=== PATIENT | female | born 1990 | race Caucasian/White ===

== ENCOUNTER 2018-03-18 13:38 | Emergency (ER) | payer MEDICAID ==
--- NOTE | 2018-03-18 14:25 | Emergency Department Record ---
History of Present Illness - General Chief complaint: Eye Problem Stated complaint: headache Time Seen by Provider: 03/18/18 14:19 Source: Patient Mode of Arrival: Ambulatory Limitations: No limitations - History of Present Illness Initial comments: Pt to ED after episode of visual changes this AM followed by HUNTER and vomiting. Now better. Hx of similar 5 times in the past. No other complaints. Pt had left visual field "weird lights and lines" then developed and HUNTER on the left side. Shortly after vomited. No weakness. Onset/Timin -: Hour(s) Onset Description: Sudden Location: Left eye Place: Home Eye Symptoms: Decreased vision Associated Symptoms: None Treatments Prior to Arrival: None - Related Data Visual acuity (L) = 20/: 20 Visual acuity (R) = 20/: 20 With correction: No Home Medications Medication Instructions Recorded Confirmed Last Taken No Home Med [NO HOME MEDS] 03/18/18 03/18/18 Unknown Allergies Allergy/AdvReac Type Severity Reaction Status Date / Time No Known Drug Allergies Allergy Verified 03/18/18 13:59 Travel Screening - Travel/Exposure Within Last 30 Days Have you traveled within the last 30 days?: No Review of Systems Constitutional: Denies: Chills, Fever, Weakness Eyes: Reports: Photophobia, Vision change ENT: Denies: Congestion Respiratory: Denies: Cough, Dyspnea Cardiovascular: Denies: Arrhythmia, Chest pain Endocrine: Denies: Fatigue Gastrointestinal: Reports: Vomiting. Denies: Abdominal pain Genitourinary: Denies: Abnormal menses Musculoskeletal: Denies: Arthralgia Neurological: Reports: Headache. Denies: Numbness, Seizure, Tingling, Tremors, Weakness Psychiatric: Denies: Anxiety Hematological/Lymphatic: Denies: Anemia Past Medical History - SOCIAL HISTORY Smoking Status: Current every day smoker Alcohol Use: None Drug Use: None - RESPIRATORY Hx Respiratory Disorders: No - CARDIOVASCULAR Hx Cardio Disorders: No - NEURO Hx Neuro Disorders: No - GI Hx GI Disorders: No - Hx Genitourinary Disorders: No - ENDOCRINE Hx Endocrine Disorders: No - MUSCULOSKELETAL Hx Musculoskeletal Disorders: No - PSYCH Hx Psych Problems: No - HEMATOLOGY/ONCOLOGY Hx Hematology/Oncology Disorders: No Family Medical History Any Significant Family History?: No Physical Exam - General General Appearance: Alert, Oriented x3, Cooperative, No acute distress - Eye Eye exam: Normal appearance, PERRL, EOMI. negative: Nystagmus With correction: No - ENT ENT exam: Normal exam, Mucous membranes moist, Normal external ear exam, Normal orophraynx, TM's normal bilaterally - Neck Neck exam: Normal inspection. negative: Lymphadenopathy, Tenderness - Respiratory Respiratory exam: Normal lung sounds bilaterally. negative: Rhonchi, Wheezes - Cardiovascular Cardiovascular Exam: Regular rate, Normal rhythm, Normal heart sounds - GI/Abdominal GI/Abdominal exam: Soft, Normal bowel sounds. negative: Tenderness - Extremities Extremities exam: Normal inspection - Back Back exam: Reports: Normal inspection - Neurological Neurological exam: Alert, CN II-XII intact, Normal gait, Oriented X3 - Psychiatric Psychiatric exam: Normal affect, Normal mood - Skin Skin exam: Normal color Course Vital Signs 03/18/18 13:56 Temperature 97.7 F Pulse Rate 92 H Respiratory 18 Rate Blood Pressure 146/94 Pulse Ox 99 - Reevaluation(s) Reevaluation #1: 03/18/18 14:22 pt with hx of classic migraine. Pt without HUNTER and normal visual accuity. Will follow with Family doc referral. Disposition Disposition: Discharge Clinical Impression: Migraine, Change in vision Disposition: Home, Self-Care Return To Work/School Note Provided: Yes Condition: (1) Good Instructions: Migraine Headache (ED) Referrals: ASHLEY SHABAZZ D.O. [DOCTOR OF OSTEOPATH] - Quality - Quality Measures Quality Measures: N/A, Headache (All Ages) - Headache: Neuroimaging Quality Measure: Measure #419: Overuse of Neuroimaging Neurological Exam: Patient had a normal neurological exam. [G9535] Headache: Use of Neuroimaging: < CTA, CT, MRA or MRI was NOT ordered > [G9534] - Blood Pressure Screening Does Patient Have Any of the Following: No Blood Pressure Classification: Hypertensive Reading Systolic Measurement: 146 Diastolic Measurement: 94 Screening for High Blood Pressure: < Pre-Hypertensive BP, F/U Documented > [ G8950] Pre-Hypertensive Follow-up Interventions: Follow-up with rescreen every year.
== END 2018-03-18 14:32 | disposition home or self-care (01) ==
LOC: ER 13:38
DX: G43.909 Migraine, unspecified, not intractable, without status migrainosus (principal); H53.9 Unspecified visual disturbance; F17.210 Nicotine dependence, cigarettes, uncomplicated
CPT/HCPCS: 99282

== ENCOUNTER 2018-11-17 13:39 | Emergency (ER) | payer MEDICAID ==
[2018-11-17] MEDS ORDERED: PROMETHAZINE HCL 12.5 MG in 0.9 % SODIUM CHLORIDE 100ML 100 ML IVPB ONE (14:20)
[2018-11-17] MEDS ORDERED: 0.9 % SODIUM CHLORIDE 1,000 ML BAG IV ONE (14:32)
[2018-11-17] MEDS ORDERED: ACETAMINOPHEN 1,000 MG/100 ML BTL IVPB ONE (14:32)
[2018-11-17 14:46] LABS: BASO % 0.2 % (0-6); EOS % 0.9 % (0-6); GRAN % 77.5 % (47-80); HEMATOCRIT 39.2 % (35.0-47.0); LYMPH % 17.3 % (16-45); MEAN CELL VOLUME 84.7 fl (81-97); MEAN CORPUSCULAR HEMOGLOBIN 28.1 pg (27-33); MEAN CORPUSCULAR HGB CONC 33.2 g/dl (32-36); MEAN PLATELET VOLUME 9.7 fl (7.4-10.4); MONO % 4.1 % (0-9); PLATELET COUNT 388 K/uL (130-400); RED BLOOD COUNT 4.63 M/uL (3.80-5.40); RED CELL DISTRIBUTION WIDTH 13.5 % (11.5-14.5); WHITE BLOOD COUNT W/O DIFF 11.4 K/uL (4.2-12.2)
[2018-11-17 14:47] LABS: URINE APPEARANCE CLEAR; URINE BILIRUBIN NEGATIVE (NEGATIVE); URINE BLOOD NEGATIVE (NEGATIVE); URINE COLOR YELLOW; URINE GLUCOSE (UA) NEGATIVE (NEGATIVE); URINE KETONE NEGATIVE (NEGATIVE); URINE LEUKOCYTE ESTERASE NEGATIVE (NEGATIVE); URINE NITRITE NEGATIVE (NEGATIVE); URINE PROTEIN TRACE (NEGATIVE); URINE UROBILINOGEN 0.2 E.U./dL (0.20 - 1.00)
[2018-11-17 14:51] LABS: HCG,QUALITATIVE URINE POSITIVE (NEGATIVE)
[2018-11-17 14:53] LABS: BLOOD UREA NITROGEN 12 mg/dL (6-20)
[2018-11-17 14:54] LABS: CREATININE 0.5 mg/dL (0.5-0.9); EST GLOMERULAR FILTRATION RATE > 60 mL/min
[2018-11-17 14:56] LABS: GLUCOSE,RANDOM 92 mg/dL (74-109)
[2018-11-17 14:58] LABS: URINE BACTERIA FEW; URINE MUCUS MODERATE; URINE RBC 0 - 2 (NONE SEEN); URINE WBC 0 - 2 (0-2/hpf)
--- NOTE | 2018-11-17 16:13 | Emergency Department Record ---
History of Present Illness - General Chief Complaint: Headache Migraine Stated Complaint: LOSING VISION,HEADACHE,() Time Seen by Provider: 11/17/18 14:04 Source: Patient Mode of Arrival: Ambulatory Limitations: No limitations - History of Present Illness Initial Comments: pt has had a headache for 2 days w visual disturbances . she has had similar headaches 6 times in the past. she saw a migraine specialist. she said this one was worse but is better now. she is 8 wks and has not been able to keep anything down. the headache is a 5/10sitting up in bed smiling pt is MD Complaint: "Migraine" -: Days(s) Onset Description: Sudden Location: Frontal Severity scale (1-10): 5 Quality: Throbbing, Other Consistency: Constant Improves With: Rest Associated Symptoms: Photophobia, Vision loss Treatment Prior to Arrival Comment:: Pt took alleve and aspirin while at work - Symptoms of Stroke Onset of Symptoms Date: 11/15/18 Onset of Symptoms Time: 04:00 - Related Data Allergies Allergy/AdvReac Type Severity Reaction Status Date / Time No Known Drug Allergies Allergy Verified 11/17/18 14:03 Travel Screening - Travel/Exposure Within Last 30 Days Have you traveled within the last 30 days?: No - Travel Symptoms Symptom Screening: None Past Medical History - SOCIAL HISTORY Smoking Status: Former smoker Alcohol Use: None Drug Use: None - RESPIRATORY Hx Respiratory Disorders: No - CARDIOVASCULAR Hx Cardio Disorders: No - NEURO Hx Neuro Disorders: No - GI Hx GI Disorders: No - Hx Genitourinary Disorders: No - ENDOCRINE Hx Endocrine Disorders: No - MUSCULOSKELETAL Hx Musculoskeletal Disorders: No - PSYCH Hx Psych Problems: No - HEMATOLOGY/ONCOLOGY Hx Hematology/Oncology Disorders: No Family Medical History Any Significant Family History?: No Course Vital Signs 11/17/18 13:54 Temperature 98.2 F Pulse Rate 84 Respiratory 18 Rate Blood Pressure 136/84 Pulse Ox 100 - Reevaluation(s) Reevaluation #1: 11/17/18 16:15 pt feels better Medical Decision Making - Lab Data Result diagrams: 11/17/18 14:30 11/17/18 14:30 Lab Results 11/17/18 11/17/18 11/17/18 Range/Units 14:30 14:30 14:30 WBC 11.4 (4.2-12.2) K/uL RBC 4.63 (3.80-5.40) M/uL Hgb 13.0 (11.6-16.0) gm/dl Hct 39.2 (35.0-47.0) % MCV 84.7 (81-97) fl MCH 28.1 (27-33) pg MCHC 33.2 (32-36) g/dl RDW 13.5 (11.5-14.5) % Plt Count 388 (130-400) K/uL MPV 9.7 (7.4-10.4) fl Gran % 77.5 (47-80) % Lymphocytes % 17.3 (16-45) % Monocytes % 4.1 (0-9) % Eosinophils % 0.9 (0-6) % Basophils % 0.2 (0-6) % Sodium 136 (136-145) mmol/L Potassium 4.0 (3.4-4.5) mmol/L Chloride 99 (98-107) mmol/L Carbon Dioxide 26.0 (22-29) mmol/L Anion Gap 11.0 (7-16) BUN 12 (6-20) mg/dL Creatinine 0.5 (0.5-0.9) mg/dL Estimated GFR > 60 mL/min Random Glucose 92 (74-109) mg/dL Calcium 9.8 (8.6-10.0) mg/dL Urine Color Yellow Urine Appearance Clear Urine pH 6.0 (5.0-8.0) Ur Specific [place] >= 1.030 (1.002-1.030) Urine Protein Trace H (NEGATIVE) Urine Glucose (UA) Negative (NEGATIVE) Urine Ketones Negative (NEGATIVE) Urine Blood Negative (NEGATIVE) Urine Nitrite Negative (NEGATIVE) Urine Bilirubin Negative (NEGATIVE) Urine Urobilinogen 0.2 (0.20 - 1.00) E.U./dL Ur Leukocyte Esterase Negative (NEGATIVE) Urine RBC 0 - 2 (NONE SEEN) Urine WBC 0 - 2 (0-2/hpf) U Non-Squamous Epi Cells 10 - 15 /hpf Urine Bacteria Few Urine Mucus Moderate Urine HCG, Qual Positive H (NEGATIVE) Disposition Disposition: Discharge Clinical Impression: Dehydration Migraine Qualifiers: Migraine type: ophthalmoplegic Intractability: not intractable Qualified Code(s ): G43.B0 - Ophthalmoplegic migraine, not intractable Qualifiers: Weeks of gestation: 8 weeks Qualified Code(s): Z3A.08 - 8 weeks gestation of Disposition: Home, Self-Care Condition: (1) Good Instructions: Migraine Headache (ED) Additional Instructions: follow up with family doctor and nurse educator. return sooner if worse Quality - Quality Measures Quality Measures: N/A - Blood Pressure Screening Does Patient Have Any of the Following: No Blood Pressure Classification: Pre-Hypertensive BP Reading Systolic Measurement: 136 Diastolic Measurement: 84 Screening for High Blood Pressure: < First Hypertensive BP, F/U Documented > [ G8950] First Hypertensive Follow-up Interventions: Follow-up with rescreen GT 1 day and LT 4 weeks.
--- NOTE | 2018-11-21 16:32 | Emergency Department Record ---
History of Present Illness - General Chief Complaint: Headache Migraine Stated Complaint: LOSING VISION,HEADACHE,() Time Seen by Provider: 11/17/18 14:04 Source: Patient Mode of Arrival: Ambulatory Limitations: No limitations - History of Present Illness -: Days(s) Onset Description: Sudden Location: Frontal Severity scale (1-10): 5 Quality: Throbbing, Other Consistency: Constant Improves With: Rest Associated Symptoms: Photophobia, Vision loss Treatment Prior to Arrival Comment:: Pt took alleve and aspirin while at work - Symptoms of Stroke Onset of Symptoms Date: 11/15/18 Onset of Symptoms Time: 04:00 - Related Data Allergies Allergy/AdvReac Type Severity Reaction Status Date / Time No Known Drug Allergies Allergy Verified 11/17/18 14:03 Travel Screening - Travel/Exposure Within Last 30 Days Have you traveled within the last 30 days?: No - Travel Symptoms Symptom Screening: None Review of Systems Reviewed: No additional complaints except as noted below Constitutional: Reports: As per HPI. Denies: Chills, Fever, Malaise, Night sweats, Weakness, Weight change Eyes: Reports: As per HPI. Denies: Eye discharge, Eye pain, Photophobia, Vision change ENT: Reports: As per HPI. Denies: Congestion, Dental pain, Ear pain, Epistaxis, Hearing loss, Throat pain Respiratory: Reports: As per HPI. Denies: Cough, Dyspnea, Hemoptysis, Stridor, Wheezes Cardiovascular: Reports: As per HPI. Denies: Arrhythmia, Chest pain, Dyspnea on exertion, Edema, Murmurs, Orthopnea, Palpitations, Paroxysmal nocturnal dyspnea, Rheumatic Fever, Syncope Endocrine: Reports: As per HPI. Denies: Fatigue, Heat or cold intolerance, Polydipsia, Polyuria Gastrointestinal: Reports: As per HPI. Denies: Abdominal pain, Constipation, Diarrhea, Hematemesis, Hematochezia, Melena, Nausea, Vomiting Genitourinary: Reports: As per HPI. Denies: Abnormal menses, Discharge, Dyspareunia, Dysuria, Frequency, Hematuria, Incontinence, Retention, Urgency Musculoskeletal: Reports: As per HPI. Denies: Arthralgia, Back pain, Gout, Joint swelling, Myalgia, Neck pain Skin: Reports: As per HPI. Denies: Bruising, Change in color, Change in hair/nails, Lesions, Pruritus, Rash Neurological: Reports: As per HPI. Denies: Abnormal gait, Confusion, Headache, Numbness, Paresthesias, Seizure, Tingling, Tremors, Vertigo, Weakness Psychiatric: Reports: As per HPI. Denies: Anxiety, Auditory hallucinations, Depression, Homicidal thoughts, Suicidal thoughts, Visual hallucinations Hematological/Lymphatic: Reports: As per HPI. Denies: Anemia, Blood Clots, Easy bleeding, Easy bruising, Swollen glands Past Medical History - SOCIAL HISTORY Smoking Status: Former smoker Alcohol Use: None Drug Use: None - RESPIRATORY Hx Respiratory Disorders: No - CARDIOVASCULAR Hx Cardio Disorders: No - NEURO Hx Neuro Disorders: No - GI Hx GI Disorders: No - Hx Genitourinary Disorders: No - ENDOCRINE Hx Endocrine Disorders: No - MUSCULOSKELETAL Hx Musculoskeletal Disorders: No - PSYCH Hx Psych Problems: No - HEMATOLOGY/ONCOLOGY Hx Hematology/Oncology Disorders: No Family Medical History Any Significant Family History?: No Physical Exam - General General Appearance: Alert, Oriented x3, Cooperative, No acute distress Limitations: No limitations - Head Head exam: Normal inspection - Eye Eye exam: Normal appearance, PERRL, EOMI Pupils: Normal accommodation - ENT ENT exam: Normal exam, Mucous membranes moist, Normal external ear exam, Normal orophraynx Ear exam: Normal external inspection. negative: External canal tenderness Nasal Exam: Normal inspection. negative: Discharge, Sinus tenderness Mouth exam: Normal external inspection, Tongue normal Teeth exam: Normal inspection. negative: Dental caries Throat exam: Normal inspection. negative: Tonsillar erythema, Tonsillar exudate - Neck Neck exam: Normal inspection, Full ROM. negative: Tenderness - Respiratory Respiratory exam: Normal lung sounds bilaterally. negative: Respiratory distress - Cardiovascular Cardiovascular Exam: Regular rate, Normal rhythm, Normal heart sounds - GI/Abdominal GI/Abdominal exam: Soft, Normal bowel sounds. negative: Tenderness - Rectal Rectal exam: Deferred - exam: Deferred - Extremities Extremities exam: Normal inspection, Full ROM, Normal capillary refill. negative: Tenderness - Back Back exam: Reports: Normal inspection, Full ROM. Denies: Muscle spasm, Rash noted, Tenderness - Neurological Neurological exam: Alert, CN II-XII intact, Normal gait, Oriented X3 - Psychiatric Psychiatric exam: Normal affect, Normal mood - Skin Skin exam: Dry, Intact, Normal color, Warm Course Vital Signs 11/17/18 11/17/18 13:54 16:33 Temperature 98.2 F 98.2 F Pulse Rate 84 Pulse Rate [ 78 Pulse Ox Probe] Respiratory 18 18 Rate Blood Pressure 136/84 Blood Pressure 126/80 [Left Arm] Pulse Ox 100 99 Medical Decision Making - Lab Data Result diagrams: 11/17/18 14:30 11/17/18 14:30 Lab Results 11/17/18 11/17/18 11/17/18 Range/Units 14:30 14:30 14:30 WBC 11.4 (4.2-12.2) K/uL RBC 4.63 (3.80-5.40) M/uL Hgb 13.0 (11.6-16.0) gm/dl Hct 39.2 (35.0-47.0) % MCV 84.7 (81-97) fl MCH 28.1 (27-33) pg MCHC 33.2 (32-36) g/dl RDW 13.5 (11.5-14.5) % Plt Count 388 (130-400) K/uL MPV 9.7 (7.4-10.4) fl Gran % 77.5 (47-80) % Lymphocytes % 17.3 (16-45) % Monocytes % 4.1 (0-9) % Eosinophils % 0.9 (0-6) % Basophils % 0.2 (0-6) % Sodium 136 (136-145) mmol/L Potassium 4.0 (3.4-4.5) mmol/L Chloride 99 (98-107) mmol/L Carbon Dioxide 26.0 (22-29) mmol/L Anion Gap 11.0 (7-16) BUN 12 (6-20) mg/dL Creatinine 0.5 (0.5-0.9) mg/dL Estimated GFR > 60 mL/min Random Glucose 92 (74-109) mg/dL Calcium 9.8 (8.6-10.0) mg/dL Urine Color Yellow Urine Appearance Clear Urine pH 6.0 (5.0-8.0) Ur Specific [place] >= 1.030 (1.002-1.030) Urine Protein Trace H (NEGATIVE) Urine Glucose (UA) Negative (NEGATIVE) Urine Ketones Negative (NEGATIVE) Urine Blood Negative (NEGATIVE) Urine Nitrite Negative (NEGATIVE) Urine Bilirubin Negative (NEGATIVE) Urine Urobilinogen 0.2 (0.20 - 1.00) E.U./dL Ur Leukocyte Esterase Negative (NEGATIVE) Urine RBC 0 - 2 (NONE SEEN) Urine WBC 0 - 2 (0-2/hpf) U Non-Squamous Epi Cells 10 - 15 /hpf Urine Bacteria Few Urine Mucus Moderate Urine HCG, Qual Positive H (NEGATIVE) Disposition Disposition: Discharge Clinical Impression: Dehydration Migraine Qualifiers: Migraine type: ophthalmoplegic Intractability: not intractable Qualified Code (s): G43.B0 - Ophthalmoplegic migraine, not intractable Qualifiers: Weeks of gestation: 8 weeks Qualified Code(s): Z3A.08 - 8 weeks gestation of Disposition: Home, Self-Care Condition: (1) Good Instructions: Migraine Headache (ED) Additional Instructions: follow up with family doctor and landscape architecture teacher. return sooner if worse Forms: Patient Portal Access Quality - Quality Measures Quality Measures: Headache (All Ages) - Headache: Neuroimaging Quality Measure: Measure #419: Overuse of Neuroimaging ICD10 Codes Entered: Yes Neurological Exam: Patient had a normal neurological exam. [G9535] Headache: Use of Neuroimaging: < CTA, CT, MRA or MRI was NOT ordered > [G9534] - Blood Pressure Screening Does Patient Have Any of the Following: No Blood Pressure Classification: Pre-Hypertensive BP Reading Systolic Measurement: 136 Diastolic Measurement: 84 Screening for High Blood Pressure: < Pre-Hypertensive BP, F/U Documented > [G8950] Pre-Hypertensive Follow-up Interventions: Follow-up with rescreen every year.
== END 2018-11-17 16:34 | disposition home or self-care (01) ==
LOC: ER 13:39
DX: O21.1 Hyperemesis gravidarum with metabolic disturbance (principal); G43.B0 Ophthalmoplegic migraine, not intractable; Z3A.08 8 weeks gestation of pregnancy
CPT/HCPCS: 80048; 81001; 81025; 85025; 96365; 96366; 96368; 99284; J2550; J7030

== ENCOUNTER 2019-02-26 09:12 | Emergency (ER) | payer MEDICAID | END 2019-02-26 09:16 | disposition left against medical advice (07) | LOC: ER 09:12 | DX: Z53.29 Procedure and treatment not carried out because of patient's decision for other reasons (principal) ==